=== PATIENT | female | born 1990 | race Caucasian/White ===

== ENCOUNTER 2017-02-14 18:20 | Emergency (ER) | payer OTHER ==
[~2017-02-14] VITALS: Ht 154.9 cm; Wt 114.8 kg
[2017-02-14] MEDS ORDERED: IV NORMAL SALINE 1000ML BAG 1,000 ML IV SCH (19:03)
--- NOTE | 2017-02-14 19:05 | PHYS DOC ---
Past Medical History Past Medical History: No Pertinent History Past Surgical History: Alcohol Use: None Drug Use: None Adult General Chief Complaint Chief Complaint: ABDOMINAL PAIN HPI HPI Patient is a 26 year old female who presents with pain. She states she had pain 2 weeks ago and had negative urine test at Dr. Grove is office and the pain has resolved since then and then today about 30 minutes prior to arrival to the ER her pain started back. She states is in her suprapubic area she is having burning with urination. She felt nauseated. She denies any nausea or vomiting. She does feel constipated her last bowel movement was yesterday. She states she takes medicines for constipation. She has had a , she denies any sexual activity for the last year. She denies any vaginal bleeding or discharge. Review of Systems Review of Systems Constitutional: Denies fever or chills [] Eyes: Denies change in visual acuity, redness, or eye pain [] HENT: Denies nasal congestion or sore throat [] Respiratory: Denies cough or shortness of breath [] Cardiovascular: No additional information not addressed in HPI [] GI: Denies vomiting, bloody stools or diarrhea, positive for abdominal pain, nausea,[] : Denies hematuria, positive for dysuria Musculoskeletal: Denies back pain or joint pain [] Integument: Denies rash or skin lesions [] Neurologic: Denies headache, focal weakness or sensory changes [] Endocrine: Denies polyuria or polydipsia [] Current Medications Current Medications Current Medications Medications (Trade) Dose Ordered Sig/Clay Start Time Stop Time Status Last Admin Dose Admin Info (Do NOT chart on this entry -- for MONITORING) 1 each PRN DAILY PRN 02/14/17 20:45 02/16/17 20:44 Iohexol (Omnipaque 240 Mg/ml) 30 ml 1X ONCE 02/14/17 20:30 02/14/17 20:35 DC Iohexol (Omnipaque 300 Mg/ml) 75 ml 1X ONCE 02/14/17 20:30 02/14/17 20:35 DC Morphine Sulfate 2 mg PRN Q15MIN PRN 02/14/17 19:15 02/15/17 19:14 02/14/17 19:15 2 MG Ondansetron HCl (Zofran) 4 mg 1X ONCE 02/14/17 19:15 02/14/17 19:16 DC 02/14/17 19:15 4 MG Sodium Chloride 1,000 ml @ 1,000 mls/hr Q1H 02/14/17 19:03 02/14/17 20:12 DC 02/14/17 19:15 1,000 MLS/HR Allergies Allergies Allergies Coded Allergies Type Severity Reaction Last Updated Verified No Known Drug Allergies 02/14/17 No Physical Exam Physical Exam Constitutional: Well developed, well nourished, no acute distress, non-toxic appearance. [] HENT: Normocephalic, atraumatic, bilateral external ears normal, oropharynx moist, no oral exudates, nose normal. [] Eyes: PERRLA, EOMI, conjunctiva normal, no discharge. [] Neck: Normal range of motion, no tenderness, supple, no stridor. [] Cardiovascular:Heart rate regular rhythm, no murmur [] Lungs & Thorax: Bilateral breath sounds clear to auscultation [] Abdomen: Bowel sounds hypoactive, soft, tenderness to palpation the bilateral lower quadrants, no rebound or guarding, no masses, no pulsatile masses. [] Skin: Warm, dry, no erythema, no rash. [] Back: No tenderness, no CVA tenderness. [] Extremities: No tenderness, no cyanosis, no clubbing, ROM intact, no edema. [] Neurologic: Alert and oriented X 3, normal motor function, normal sensory function, no focal deficits noted. [] Psychologic: Affect normal, judgement normal, mood normal. [] Current Patient Data Vital Signs Vital Signs Date Time Temp Pulse Resp B/P (MAP) Pulse Ox O2 Delivery O2 Flow Rate FiO2 02/14/17 19:15 20 02/14/17 18:35 97.9 103 122/72 (89) 96 Room Air 97.9 Lab Values Laboratory Tests Test 02/14/17 17:37 02/14/17 18:30 02/14/17 18:50 POC Urine HCG, Qualitative Hcg negative (Negative) Urine Collection Type Unknown Urine Color Yellow Urine Clarity Clear Urine pH 5.5 Urine Specific [place] 1.015 Urine Protein Negative mg/dL (NEG-TRACE) Urine Glucose (UA) Negative mg/dL (NEG) Urine Ketones (Stick) Negative mg/dL (NEG) Urine Blood Trace (NEG) Urine Nitrite Negative (NEG) Urine Bilirubin Negative (NEG) Urine Urobilinogen Dipstick 0.2 mg/dL (0.2 mg/dL) Urine Leukocyte Esterase Negative (NEG) Urine RBC 0 /HPF (0-2) Urine WBC 1-4 /HPF (0-4) Urine Squamous Epithelial Cells Few /LPF Urine Bacteria Few /HPF (0-FEW) Urine Mucus Slight /LPF White Blood Count 12.8 x10^3/uL (4.0-11.0) H Red Blood Count 5.09 x10^6/uL (3.50-5.40) Hemoglobin 14.3 g/dL (12.0-15.5) Hematocrit 43.8 % (36.0-47.0) Mean Corpuscular Volume 86 fL (79-100) Mean Corpuscular Hemoglobin 28 pg (25-35) Mean Corpuscular Hemoglobin Concent 33 g/dL (31-37) Red Cell Distribution Width 14.9 % (11.5-14.5) H Platelet Count 433 x10^3/uL (140-400) H Neutrophils (%) (Auto) 63 % (31-73) Lymphocytes (%) (Auto) 29 % (24-48) Monocytes (%) (Auto) 6 % (0-9) Eosinophils (%) (Auto) 2 % (0-3) Basophils (%) (Auto) 1 % (0-3) Neutrophils # (Auto) 8.1 x10^3uL (1.8-7.7) H Lymphocytes # (Auto) 3.7 x10^3/uL (1.0-4.8) Monocytes # (Auto) 0.7 x10^3/uL (0.0-1.1) Eosinophils # (Auto) 0.2 x10^3/uL (0.0-0.7) Basophils # (Auto) 0.1 x10^3/uL (0.0-0.2) Sodium Level 138 mmol/L (136-145) Potassium Level 3.8 mmol/L (3.5-5.1) Chloride Level 102 mmol/L (98-107) Carbon Dioxide Level 26 mmol/L (21-32) Anion Gap 10 (6-14) Blood Urea Nitrogen 12 mg/dL (7-20) Creatinine 0.9 mg/dL (0.6-1.0) Estimated GFR (Cockcroft-Gault) 74.6 BUN/Creatinine Ratio 13 (6-20) Glucose Level 116 mg/dL (70-99) H Calcium Level 9.1 mg/dL (8.5-10.1) Total Bilirubin 0.4 mg/dL (0.2-1.0) Aspartate Amino Transferase (AST) 22 U/L (15-37) Alanine Aminotransferase (ALT) 31 U/L (14-59) Alkaline Phosphatase 126 U/L (46-116) H Creatine Kinase 57 U/L (26-192) Total Protein 7.9 g/dL (6.4-8.2) Albumin 3.4 g/dL (3.4-5.0) Albumin/Globulin Ratio 0.8 (1.0-1.7) L Serum Test, Qualitative Negative (NEG) Laboratory Tests 02/14/17 18:50 Laboratory Tests 02/14/17 18:50 EKG EKG [] Radiology/Procedures Radiology/Procedures [facility] [address] [place], [place] [id number] IMAGING REPORT Signed PATIENT: DEANDRE FRASER ACCOUNT: [id number] : 1990 LOCATION: ER AGE: 26 SEX: F EXAM STATUS: REG ER ORD. PHYSICIAN: ZOLTAN LADD MD REASON: suprapubic pain PROCEDURE: PELVIS COMPLETE Exam performed: Pelvic Ultrasound. Indication: Suprapubic pain Date of Service: 02/14/2017. No priors Technique: Transabdominal and transvaginal Findings: The study somewhat limited due to patient's large body habitus. The uterus is anteverted and measures 8.5 x 4.2 x 3.7 cm. The endometrial stripe 3.3 mm and contains fluid in the endocervical canal. There are nabothian cysts. The right ovary measures 4.3 x 2.8 x 2.3 cm , the left ovary is not clearly seen. There is no solid or cystic mass lesion. No free fluid Impression: 1. Normal uterus and right ovary. Nonvisualized left ovary. Electronically signed by: Abbie Phelps MD (02/14/2017 8:54 PM) DICTATED and SIGNED BY: ABBIE PHELPS MD DATE: 02/14/172050 CC: ZOLTAN LADD MD; ZAIN OCAMPO MD ~ Impressions: Abdominal pain Course & Med Decision Making Course & Med Decision Making Pertinent Labs and Imaging studies reviewed. (See chart for details) Patient is being checked out to Dr. Davalos with CT abdomen and pelvis pending at this time. Dragon Disclaimer Dragon Disclaimer This electronic medical record was generated, in whole or in part, using a voice recognition dictation system. Departure Departure Referrals: ZAIN OCAMPO MD (PCP) Scripts No Active Prescriptions or Reported Meds ZOLTAN LADD MD Feb 14, 2017 19:05
[2017-02-14 19:12] LABS: BASO # 0.1 x10^3/uL (0.0-0.2); BASO % 1 % (0-3); EOS % 2 % (0-3); HEMATOCRIT 43.8 % (36.0-47.0); HEMOGLOBIN 14.3 g/dL (12.0-15.5); LYMPH # 3.7 x10^3/uL (1.0-4.8); LYMPH % 29 % (24-48); MEAN CORPUSCULAR HEMOGLOBIN 28 pg (25-35); MEAN CORPUSCULAR HGB CONC 33 g/dL (31-37); MEAN CORPUSCULAR VOLUME 86 fL (79-100); MONO % 6 % (0-9); NEUT % 63 % (31-73); PLATELET COUNT 433 x10^3/uL (140-400); RED BLOOD COUNT 5.09 x10^6/uL (3.50-5.40); RED CELL DISTRIBUTION WIDTH 14.9 % (11.5-14.5); WHITE BLOOD COUNT 12.8 x10^3/uL (4.0-11.0)
[2017-02-14] MEDS: MORPHINE SULFATE 2 MG/ML DISP.SYRIN. IV/SQ PRN ×2 (19:15→21:47)
[2017-02-14] MEDS ORDERED: ONDANSETRON PF 4 MG/2 ML VIAL. IV ONE (19:15)
[2017-02-14 19:24] LABS: NEG OBC SER NEG; POS OBC SER POS
[2017-02-14 19:26] LABS: CALCIUM 9.1 mg/dL (8.5-10.1); CREATININE 0.9 mg/dL (0.6-1.0); GFR 74.6; POTASSIUM 3.8 mmol/L (3.5-5.1)
[2017-02-14 19:29] LABS: BILIRUBIN,URINE NEGATIVE (NEG); GLUCOSE,URINE NEGATIVE (NEG); NITRITE,URINE NEGATIVE (NEG); PH,URINE 5.5; PROTEIN,URINE NEGATIVE (NEG-TRACE); UROBILINOGEN,URINE 0.2 mg/dL (0.2 mg/dL)
[2017-02-14 19:33] LABS: ALBUMIN 3.4 g/dL (3.4-5.0); ALBUMIN/GLOBULIN RATIO 0.8 (1.0-1.7); TOTAL BILIRUBIN 0.4 mg/dL (0.2-1.0); TOTAL PROTEIN 7.9 g/dL (6.4-8.2)
[2017-02-14 19:46] LABS: BACTERIA,URINE FEW /HPF (0-FEW); RBC,URINE 0 /HPF (0-2); SQUAMOUS EPITHELIAL CELL,UR FEW /LPF
[2017-02-14] MEDS ORDERED: IOHEXOL 300 MG/ML 75 ML VIAL IV ONE (20:30)
[2017-02-14] MEDS ORDERED: IOHEXOL 240 MG/ML 50ML VIAL. PO ONE (20:30)
[2017-02-14] MEDS ORDERED: CONTRAST GIVEN MC PRN (20:45)
--- NOTE | 2017-02-14 20:58 | RAD ---
Exam performed: Pelvic Ultrasound. Indication: Suprapubic pain Date of Service: 02/14/2017. No priors Technique: Transabdominal and transvaginal Findings: The study somewhat limited due to patient's large body habitus. The uterus is anteverted and measures 8.5 x 4.2 x 3.7 cm. The endometrial stripe 3.3 mm and contains fluid in the endocervical canal. There are nabothian cysts. The right ovary measures 4.3 x 2.8 x 2.3 cm , the left ovary is not clearly seen. There is no solid or cystic mass lesion. No free fluid Impression: 1. Normal uterus and right ovary. Nonvisualized left ovary. Electronically signed by: Abbie Phelps MD (02/14/2017 8:54 PM)
--- NOTE | 2017-02-14 22:12 | RAD ---
Exam performed: CT scan of the abdomen and pelvis with contrast Clinical Indication: Lower abdominal pain and vomiting demyelination Date of Service: 02/14/2017 comparison: None available Technique: Contiguous helical acquisitions are obtained from the lung bases to the pelvis during intravenous administration of [75 mL of Omnipaque 300]. In addition oral contrast was also given. Sagittal and coronal reformatted images were obtained and reviewed. CT abdomen findings: The lung bases appear essentially clear. Visualized heart is normal. The liver, spleen ,gall bladder and pancreas appears unremarkable. Both adrenal glands and bilateral kidneys appear normal with symmetric excretion of contrast via both kidneys. The small bowel loops appear nondilated and unremarkable. There is no retroperitoneal lymphadenopathy or mass lesions. No bowel related inflammatory stranding is noted. Visualized appendix is normal. No obvious stranding is seen in the pericecal region. Small ventral abdominal defect containing omental fat. CT pelvis findings: The pelvic bowel loops are nondilated and unremarkable. The urinary bladder is well distended and normal . Uterus is anteverted. No evidence of masses seen. Interrogation of bone windows demonstrates no obvious bony abnormality. Sagittal and coronal reformatted images were obtained and reviewed which demonstrate no additional findings. Impression abdomen and pelvis : 1. No acute intra-abdominal or pelvic process is detected. 2. Tiny ventral abdominal wall defect containing omental fat. 3. Appendix is normal. PQRS Compliance Statement: One or more of the following individualized dose reduction techniques were utilized for this examination: 1. Automated exposure control 2. Adjustment of the mA and/or kV according to patient size 3. Use of iterative reconstruction technique Electronically signed by: Abbie Phelps MD (02/14/2017 10:09 PM)
[2017-02-14] MEDS ORDERED: IV NORMAL SALINE 1000ML BAG 1,000 ML IV ONE (22:30)
[2017-02-14 23:02] VITALS: BP 121/67
--- NOTE | 2017-02-15 06:32 | EKG ---
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
== END 2017-02-14 23:34 | disposition home or self-care (01) ==
LOC: ER 18:20
DX: R10.30 Lower abdominal pain, unspecified (principal); R30.0 Dysuria; R11.0 Nausea; Z98.890 Other specified postprocedural states
CPT/HCPCS: 36415; 74177; 76856; 80053; 81001; 81025; 82550; 84703; 85027; 93005; 96361; 96374; 96375; 96376; 99285; J2270; J2405; J7030; Q9966; Q9967

== ENCOUNTER 2017-08-29 15:14 | Emergency (ER) | payer MEDICARE, OTHER ==
[2017-08-30 08:59] LABS: NEGATIVE OBC STREP NEG; POSITIVE OBC STREP POS
== END 2017-08-29 16:00 | disposition home or self-care (01) ==
LOC: ER 15:14
DX: J06.9 Acute upper respiratory infection, unspecified (principal); H10.9 Unspecified conjunctivitis
CPT/HCPCS: 87070; 87880; 99283

== ENCOUNTER 2020-07-02 19:17 | Emergency (ER) | payer MEDICARE, OTHER ==
[~2020-07-02] VITALS: Ht 154.9 cm; Wt 113.0 kg
[~2020-07-02 19:17] MED LIST: AMOX500C PO; OFLO5DRO OD
[2020-07-02 19:33] VITALS: BP 129/84
[2020-07-02] MEDS ORDERED: MUPI22OI2 TP (20:59)
--- NOTE | 2020-07-02 21:00 | ED.ADGEN ---
Past Medical History Past Medical History: No Pertinent History Past Surgical History: Smoking Status: Never Smoker Alcohol Use: None Drug Use: None General Adult EDM: Chief Complaint: INSECT BITE HPI: HPI: Patient is a 29 year old female who presents to the emergency department with complaints of an infected area to her left lateral breast that drained some white pus for the last week. Patient reports that she thinks it is an infected insect bite. She denies any fever, cough, shortness of breath, nausea, vomiting, diarrhea, swelling, numbness, tingling, or discharge from her left nipple. She only rates the pain a 2 out of 10 on the pain scale, she denies any alleviating factors, the pain is worse with palpation. Review of Systems: Review of Systems: Complete ROS is negative unless otherwise noted in HPI. Allergies: Allergies: Allergies Coded Allergies Type Severity Reaction Last Updated Verified No Known Drug Allergies 02/14/17 No Physical Exam: PE: See Above Constitutional: Well developed, well nourished, no acute distress, non-toxic appearance. [] HENT: Normocephalic, atraumatic, bilateral external ears normal, nose normal. [] Eyes: PERRLA, EOMI, conjunctiva normal, no discharge. [] Neck: Normal range of motion, no stridor. [] Cardiovascular:Heart rate regular rhythm Lungs & Thorax: Respirations even and unlabored, no retractions, no respiratory distress Abdomen: soft, no tenderness Skin: Warm, dry; 1.5 cm erythemic area with 2 open pinpoint areas that are draining clear fluid noted to the lateral left breast at the 4 o'clock position, consistent with infected bite/cellulitis, the affected area is tender to palpation, nonfluctuant Extremities: No cyanosis, ROM intact, no edema. [] Neurologic: Alert and oriented X 3, no focal deficits noted. [] Psychologic: Affect normal, judgement normal, mood normal. [] Current Patient Data: Vital Signs: Vital Signs Date Time Temp Pulse Resp B/P (MAP) Pulse Ox O2 Delivery O2 Flow Rate FiO2 07/02/20 19:33 97.9 98 18 129/84 (99) 97 Room Air 97.9 EKG: EKG: [] Heart Score: Risk Factors: Risk Factors: DM, Current or recent (<one month) smoker, HTN, HLP, family history of CAD, obesity. Risk Scores: Score 0 - 3: 2.5% MACE over next 6 weeks - Discharge Home Score 4 - 6: 20.3% MACE over next 6 weeks - Admit for Clinical Observation Score 7 - 10: 72.7% MACE over next 6 weeks - Early Invasive Strategies Radiology/Procedures: Radiology/Procedures: [] Course & Med Decision Making: Course & Med Decision Making Pertinent Labs and Imaging studies reviewed. (See chart for details) [] Dragon Disclaimer: Dragon Disclaimer: This electronic medical record was generated, in whole or in part, using a voice recognition dictation system. Departure Departure Impression: Primary Impression: Infected insect bite of breast Disposition: 01 DC HOME SELF CARE/HOMELESS Condition: STABLE Referrals: ZAIN OCAMPO MD (PCP) Patient Instructions: Cellulitis, Nzht-ci-Anks, Insect Bite, Vwzn-ek-Hkow Additional Instructions: Fill the prescription(s) and use as directed. Recommend application of warm heat to the affected area as needed for comfort. You may take Tylenol or ibuprofen as needed for pain. Follow-up with your primary care doctor in 1 to 2 days for wound recheck, return to the ER if symptoms worsen or you develop a fever. Scripts Mupirocin (MUPIROCIN OINTMENT) 22 Gm Oint...g. 1 MELANI TP TID for WOUND CARE for 7 Days, #1 TUBE 0 Refills Prov: SHOLA BOLIVAR APRN 07/02/20 Problem Qualifiers Primary Impression: Infected insect bite of breast Encounter type: initial encounter Laterality: left Qualified Codes: S20.162A - Insect bite (nonvenomous) of breast, left breast, initial encounter; L08.9 - Local infection of the skin and subcutaneous tissue, unspecified; W57.XXXA - Bitten or stung by nonvenomous insect and other nonvenomous arthropods, initial encounter SHOLA BOLIVAR BOBBIN WASHER Jul 02, 2020 21:00
== END 2020-07-02 21:30 | disposition home or self-care (01) ==
LOC: ER 19:17
DX: S20.162A Insect bite (nonvenomous) of breast, left breast, initial encounter (principal); L08.9 Local infection of the skin and subcutaneous tissue, unspecified; Z98.890 Other specified postprocedural states; W57.XXXA Bitten or stung by nonvenomous insect and other nonvenomous arthropods, initial encounter; Y93.89 Activity, other specified; Y92.89 Other specified places as the place of occurrence of the external cause; Y99.8 Other external cause status
CPT/HCPCS: 99283

== ENCOUNTER 2020-11-16 21:25 | Emergency (ER) | payer MEDICARE, OTHER ==
[~2020-11-16] VITALS: Ht 162.6 cm; Wt 113.0 kg
[~2020-11-16 21:25] MED LIST changes: +MUPI22OI2 TP
[2020-11-16 23:05] VITALS: BP 159/73
--- NOTE | 2020-11-16 23:31 | RAD ---
CT HEAD AND C-SPINE WO Date: 11/16/2020 11:09 PM Clinical Indication: FALL, HIT BACK OF HEAD, pain Comparison: None. Technique: 5 mm axial tomographic images were obtained of the head without contrast. These were view ed on brain and bone windows. CT imaging of the cervical spine was performed without contrast. Coron al and sagittal reformatted images were performed. One or more of the following dose reduction techni ques were utilized: Automated exposure control (AEC), Adjustment of mA and/or kV according to patient size, Use of iterative reconstruction technique such as ASiR, CT scan done according to ALARA and im age gently/image wisely HEAD FINDINGS: The brain parenchyma is normal in attenuation. No intra- or extra-axial mass or fluid collection. No acute hemorrhage. The ventricles are normal in size, shape, and morphology. The bettencourt-white matter dali ction is normal. The basilar cisterns are patent. The visualized paranasal sinuses are normal. The visualized portions of the orbits and globes are no rmal. The mastoid air cells are clear. No aggressive osseous lesion or fracture. Right posterior scal p swelling CERVICAL SPINE FINDINGS: The cervical spine is normally aligned. No acute fracture. No aggressive lytic or blastic osseous les ion. The intervertebral disc heights are maintained. No high-grade spinal canal stenosis or neural foramin al narrowing. The thyroid gland is normal. No cervical lymphadenopathy. The visualized aerodigestive tract is unrem arkable. The visualized lung apices are clear. IMPRESSION: 1. No acute intracranial process. Right posterior scalp swelling. 2. No acute osseous abnormality of the cervical spine. Electronically signed by: Leonides Maurer MD (11/16/2020 11:29 PM) [facility]
[2020-11-16] MEDS ORDERED: IBUPROFEN 200 MG TABLET. PO ONE (23:55)
[2020-11-16] MEDS ORDERED: ACETAMINOPHEN 325 MG TABLET. PO ONE (23:55)
--- NOTE | 2020-11-17 00:04 | PHYS DOC ---
Past Medical History Past Medical History: No Pertinent History Past Surgical History: Smoking Status: Never Smoker Alcohol Use: None Drug Use: None General Adult EDM: Chief Complaint: MECHANICAL FALL HPI: HPI: Patient is a 30 year old female presents to the emergency department with complaints of head pain after falling backward and hitting her head on the grass. Patient states she was walking a dog when the dog pulled her in a funny direction and she stumbled and fell backward hitting her head on the ground. Patient denies any loss of consciousness, denies any visual changes, complains of head pain at the site where she struck the back of her head, complains of a bump on her head. Patient denies any nausea, vomiting, abdominal pains, or diarrhea, or constipation. Patient denies chest pain, shortness of breath, chest congestion. Patient denies any sore throat. Patient denies rashes of her skin. Patient denies any other physical injuries or physical complaints. Review of Systems: Review of Systems: 14 body systems of review of systems have been reviewed. See HPI for pertinent positives and negative responses, otherwise all other systems are negative, nonpertinent or noncontributory. Heart Score: C/O Chest Pain: No Risk Factors: Risk Factors: DM, Current or recent (<one month) smoker, HTN, HLP, family history of CAD, obesity. Risk Scores: Score 0 - 3: 2.5% MACE over next 6 weeks - Discharge Home Score 4 - 6: 20.3% MACE over next 6 weeks - Admit for Clinical Observation Score 7 - 10: 72.7% MACE over next 6 weeks - Early Invasive Strategies Current Medications: Current Medications Medications (Trade) Dose Ordered Sig/[facility] Start Time Stop Time Status Last Admin Dose Admin Acetaminophen (Tylenol) 650 mg 1X ONCE 11/16/20 23:55 11/16/20 23:56 DC 11/16/20 23:55 650 MG Ibuprofen (Motrin) 600 mg 1X ONCE 11/16/20 23:55 11/16/20 23:56 DC 11/16/20 23:56 600 MG Allergies: Allergies: Allergies Coded Allergies Type Severity Reaction Last Updated Verified No Known Drug Allergies 02/14/17 No Physical Exam: PE: Constitutional: Well developed, well nourished, no acute distress, non-toxic appearance. HENT: Normocephalic, atraumatic, bilateral external ears normal, oropharynx moist, no oral exudates, nose normal. No depressions of the skull appreciated, there is a hematoma to the right side occipital area. There is no abrasion of the skin, the skin is intact. No lymphadenopathy appreciated of the head or neck. Eyes: PERRLA, EOMI, conjunctiva normal, no discharge. Neck: Normal range of motion, no tenderness, supple, no stridor. No midline spinal tenderness, no meningismus signs appreciated, no nuchal rigidity. Cardiovascular:Heart rate regular rhythm, no murmur, heart sounds S1-S2. Lungs & Thorax: Bilateral breath sounds clear to auscultation all lung caldwell. Abdomen: Bowel sounds normal, soft, no tenderness, no masses, no pulsatile masses. Skin: Warm, dry, no erythema, no rash. Back: No tenderness, no CVA tenderness. No midline spinal tenderness. Extremities: No tenderness, no cyanosis, no clubbing, ROM intact, no edema. No abrasions of the extremities noted Neurologic: Alert and oriented X 3, normal motor function, normal sensory function, no focal deficits noted. Patient ambulates with steady gait. Psychologic: Affect normal, judgement normal, mood normal. Current Patient Data: Labs: Laboratory Tests Test 11/16/20 22:43 POC Urine HCG, Qualitative Hcg negative (Negative) EKG: EKG: [] Radiology/Procedures: Radiology/Procedures: PATIENT: DEANDRE FRASER AACCOUNT: [id number] : 1990 LOCATION: ER AGE: 30 SEX: F EXAM STATUS: REG ER ORD. PHYSICIAN: ZAIN FALLON APRN REASON: FALL, HIT BACK OF HEAD PROCEDURE: CT HEAD AND CERVICAL SPINE WO CT HEAD AND C-SPINE WO Date: 11/16/2020 11:09 PM Clinical Indication: FALL, HIT BACK OF HEAD, pain Comparison: None. Technique: 5 mm axial tomographic images were obtained of the head without contrast. These were viewed on brain and bone windows. CT imaging of the cervical spine was performed without contrast. Coronal and sagittal reformatted images were performed. One or more of the following dose reduction techniques were utilized: Automated exposure control (AEC), Adjustment of mA and/or kV according to patient size, Use of iterative reconstruction technique such as ASiR, CT scan done according to ALARA and image gently/image wisely HEAD FINDINGS: The brain parenchyma is normal in attenuation. No intra- or extra-axial mass or fluid collection. No acute hemorrhage. The ventricles are normal in size, shape, and morphology. The bettencourt-white matter junction is normal. The basilar cisterns are patent. The visualized paranasal sinuses are normal. The visualized portions of the orbits and globes are normal. The mastoid air cells are clear. No aggressive osseous lesion or fracture. Right posterior scalp swelling CERVICAL SPINE FINDINGS: The cervical spine is normally aligned. No acute fracture. No aggressive lytic or blastic osseous lesion. The intervertebral disc heights are maintained. No high-grade spinal canal stenosis or neural foraminal narrowing. The thyroid gland is normal. No cervical lymphadenopathy. The visualized aerodigestive tract is unremarkable. The visualized lung apices are clear. IMPRESSION: 1. No acute intracranial process. Right posterior scalp swelling. 2. No acute osseous abnormality of the cervical spine. Electronically signed by: Leonides Maurer MD (11/16/2020 11:29 PM) [facility] DICTATED and SIGNED BY: LEOINDES MAURER MD DATE: 11/16/20 [id number] 0 Course & Med Decision Making: Course & Med Decision Making Pertinent Labs and Imaging studies reviewed. (See chart for details) 30-year-old female, vital signs reviewed, presents emergency department with concerns of head pain after falling and striking the back of her head on the ground. CT of head and C-spine ordered. CT of head and C-spine were negative for acute process, reexamination of the patient found the patient to be nontoxic, will give p.o. Tylenol and Motrin for head pain of 6/10 on a 1-10 pain scale Patient gave verbal understanding of discharge home instructions, head injury precautions, strict return to emergency precautions and concerns, follow-up with primary care for ongoing headaches, patient discharged home without incident. Dragon Disclaimer: Dragon Disclaimer: This electronic medical record was generated, in whole or in part, using a voice recognition dictation system. Departure Departure Impression: Primary Impression: Head contusion Qualified Codes: S00.03XA - Contusion of scalp, initial encounter Disposition: 01 DC HOME SELF CARE/HOMELESS Condition: GOOD Referrals: ZAIN OCAMPO MD (PCP) Patient Instructions: Head Injury, Adult Additional Instructions: Take medications as prescribed, I would suspect you may experience some mild headache, please continue to take your pain medication as needed, follow-up with your primary care doctor for ongoing head pains, please return to the emergency department for worsening symptoms or other concerns. EMERGENCY DEPARTMENT GENERAL DISCHARGE INSTRUCTIONS Thank you for coming to [facility] Emergency Department (ED) today and trusting us with you care. We trust that you had a positive experience in our Emergency Department. If you wish to speak to the department management, you may call the Director at [phone]. YOUR FOLLOW UP INSTRUCTIONS ARE FOLLOWS: 1. Do you have a private Doctor? If you do not have a private doctor, please ask for a resource list of physicians or clinics that may be able to assist you with follow up care. 2. The Emergency Physicain has interpreted your x-rays. The X-Ray specialist will also review them. If there is a change in the findings, you will be notified in 48 hours when at all possible. 3. A lab test or culture has been done, your results will be reviewed and you will be notified if you need a change in treatment. ADDITIONAL INSTRUCTIONS AND INFORMATION: 1. Your care today has been supervised by a physician who is specially trained in emergency care. Many problems require more than one evaluation for a complete diagnosis and treatment. We recommend that you schedule your follow up appointment as recommended to ensure complete treatment of you illness or injury. If you are unable to obtain follow up care and continue to have a problem, or if your condition worsens, we recommend that you return to the ED. 2. We are not able to safely determine your condition over the phone nor are we able to give sound medical advice over the phone. For these safety reasons, if you call for medical advice we will ask you to come to the ED for further evaluation. 3. If you have any questions regarding these discharge instructions please call the ED at [phone]. SAFETY INFORMATION: In the interest of safety, wellness, and injury prevention; we encourage you to wear your sealbelt, if you smoke; quite smoking, and we encourage family to use a protective helmet for bicycling and other sporting events that present an increased risk for head injury. IF YOUR SYMPTOMS WORSEN OR NEW SYMPTOMS DEVELOP, OR YOU HAVE CONCERNS ABOUT YOUR CONDITION; OR IF YOUR CONDITION WORSENS WHILE YOU ARE WAITING FOR YOUR FOLLOW UP APPOINTMENT; EITHER CONTACT YOUR PRIMARY CARE DOCTOR, THE PHYSICIAN WHOSE NAME AND NUMBER YOU WERE GIVEN, OR RETURN TO THE ED IMMEDIATELY. ZAIN FALLON APRN Nov 17, 2020 00:04
== END 2020-11-17 00:10 | disposition home or self-care (01) ==
LOC: ER 21:25
DX: S00.03XA Contusion of scalp, initial encounter (principal); R51.9 Headache, unspecified; M54.2 Cervicalgia; W18.09XA Striking against other object with subsequent fall, initial encounter; Y93.K1 Activity, walking an animal; Y92.89 Other specified places as the place of occurrence of the external cause; Y99.8 Other external cause status
CPT/HCPCS: 70450; 72125; 81025; 99285-25